=== PATIENT | female | born 1950 | race Caucasian/White ===

== ENCOUNTER → 2017-03-19 | Outpatient (CLI) | payer MEDICARE, OTHER ==
[~2017-03-19] MED LIST: ACETAMINOPHEN PO; ADVIL200 M2 PO; CALCIUM 500 +1 EAC2 PO; CELEXA PO; CLARITIN10 M3 PO; CLARITIN10 MG PO; COUMADIN5 MG PO; DILTIAZEM 24HR300 MG PO; DITROPAN XL5 M2 PO; DITROPAN5 MG PO; FISH OIL 1,0001 EAC2 PO; FISH OIL 1,2001 CAP PO; HCTZ PO; HYDROCODON-ACE1 EAC7 PO; LANSOPRAZOLE30 MG PO; MAGNESIUM400 MG PO; MOBIC15 MG PO; MULTI VITAMIN1 EACH PO; NASONEX17 GM; OSTEO BI-FLEX1 EAC2 PO; POTASSIUM GLUCONATE PO; PREMPRO 0.3 MG/1 TAB PO; RESTASIS32 EA OP; SUPER B-50 COMP1 CAP PO; TIAZAC PO; VESICARE PO
--- NOTE | ~2017-03-19 | MY24 ---
[facility] A Service of [facility] RADIOLOGY TEXT RESULTS PATIENT: TASHA ZHENG LOCATION: [facility] : 54 UNIT #: [id number] AGE: [address]: Nghia Edwards MD SEX: F ORDER DR: [id number] [facility] [address] [place], [place] [address] [id number] O MR#: [id number] Acc #: [id number] NAME: TASHA ZHENG : 1950 SEX: F STUDY DATE/TIME: 03/19/2017 12:36 UNIT: [facility] ROOM: STUDY DESCRIPTION: FADUMO JUDY ROSS W/ CAD UNI LT Attending Physician: Nghia Edwards M.D. Referring Physician: Nghia Edwards M.D. Ordering Physician: Nghia Edwards M.D. Primary Care Physician: Nghia Edwards M.D. MEDICAL IMAGING REPORT This report is preliminary unless electronic signature is present EXAM Diagnostic left mammogram, 03/19 INDICATIONS New palpable nodule in the left breast for about 1 month. Patient noticed prior bruising in the area, but recalls no focal trauma. FINDINGS Digital CC, MLO, and ML views of the left breast were obtained in addition to spot compression CC and MLO views. Study is reviewed with an FDA-approved CAD device. Comparison is made with 07/10/2016 and 06/03/2013. Breast parenchyma shows scattered fibroglandular densities. A small, circumscribed benign nodule in the anterior left breast is unchanged. In the upper outer left breast corresponding to the palpable abnormality, there is a mixed-density, ovoid nodule measuring up to about 2.6 cm in greatest dimension. It has some fatty components in addition to some more dense components. No associated microcalcifications. Ultrasound was subsequently performed. Ultrasound demonstrates a subcutaneous, ovoid lesion with cystic and solid components. The solid components are hyperechoic, rather than hypoechoic. Overall, this has the appearance of a hematoma or fat necrosis, rather than a true tumor. It has no internal vascularity by Doppler. It measures about 3.0 x 2.5 x 1.4 cm. It is at the 2 o'clock position about 8 cm from the nipple. These findings were discussed with the patient. At this point, I would recommend a follow-up ultrasound in 3 months to document improvement. Patient is aware that should the lesion enlarge during that time, tissue sampling may be needed. IMPRESSION [facility]. [facility] A Service of [facility] RADIOLOGY TEXT RESULTS PATIENT: TASHA ZHENG LOCATION: [facility] : 54 UNIT #: [id number] AGE: [address]: Nghia Edwards MD SEX: F ORDER DR: Constellation of findings suggest either a hematoma or area of fat necrosis corresponding to the palpable abnormality in the left breast at about the 2 o'clock position. See full discussion above. Follow-up ultrasound in 3 months is recommended. Patients over the age of 40 are entered into a reminder system with target due date for the next mammogram. A result letter will also be sent to the patient. BIRADS: 3 Probably Benign Finding; Short Interval Followup Suggested Dictated by... Alden Fernandes Jr., M.D. THIS IS AN ELECTRONICALLY VERIFIED REPORT Alden Fernandes Jr., M.D. at 03/20/2017 7:20 AM DIETER/nash TD: 03/19/2017 21:18 JOB #: [id number] MEDICAL IMAGING REPORT Page 1 of 1 COPY
--- NOTE | ~2017-03-19 | US24 ---
[facility] A Service of [facility] RADIOLOGY TEXT RESULTS PATIENT: TASHA ZHENG LOCATION: [facility] : 54 UNIT #: [id number] AGE: [address]: Nghia Edwards MD SEX: F ORDER DR: [id number] [facility] [address] [place], [place] [address] [id number] O MR#: [id number] Acc #: [id number] NAME: TASHA ZHENG : 1950 SEX: F STUDY DATE/TIME: 03/19/2017 12:54 UNIT: [facility] ROOM: STUDY DESCRIPTION: US Breast Unilateral Attending Physician: Nghia Edwards M.D. Referring Physician: Nghia Edwards M.D. Ordering Physician: Nghia Edwards M.D. Primary Care Physician: Nghia Edwards M.D. MEDICAL IMAGING REPORT This report is preliminary unless electronic signature is present EXAM Left breast ultrasound, 03/19 INDICATIONS New palpable abnormality in the left breast for about 1 month. Prior history of bruising in the area but no known trauma. FINDINGS For a full report, see the mammogram report dated 03/19/2017. Patients over the age of 40 are entered into a reminder system with target due date for the next mammogram. A result letter will also be sent to the patient. BIRADS: 3 Probably Benign Finding; Short Interval Followup Suggested Dictated by... Alden Fernandes Jr., M.D. THIS IS AN ELECTRONICALLY VERIFIED REPORT Alden Fernandes Jr., M.D. at 03/20/2017 12:04 PM DIETER/nash TD: 03/19/2017 21:25 JOB #: [id number] MEDICAL IMAGING REPORT Page 1 of 1 COPY
== END | disposition home or self-care (01) ==
LOC: CMAM 12:08
DX: N63 Unspecified lump in breast (principal)
CPT/HCPCS: 76641; G0206